=== PATIENT | female | born 2000 | race Caucasian/White ===

== ENCOUNTER 2018-07-14 17:57 | Emergency (ER) | payer SELFPAY ==
[~2018-07-14] VITALS: Ht 147.3 cm; Wt 49.9 kg
[2018-07-14 18:09] VITALS: BP_SYST 138
[2018-07-14 18:41] VITALS: BP_SYST 138
== END 2018-07-14 18:41 | disposition home or self-care (01) ==
LOC: SED 17:57
DX: S63.601A Unspecified sprain of right thumb, initial encounter (principal); X58.XXXA Exposure to other specified factors, initial encounter; Y93.89 Activity, other specified; Y92.89 Other specified places as the place of occurrence of the external cause; Y99.8 Other external cause status; R03.0 Elevated blood-pressure reading, without diagnosis of hypertension
CPT/HCPCS: 99284